=== PATIENT | male | born 1985 | race African-American/Black ===

== ENCOUNTER 2019-02-15 13:23 | Emergency (ER) | payer BC | END 2019-02-15 15:32 | disposition home or self-care (01) | LOC: ERS 13:23 | DX: M79.641 Pain in right hand (principal); F17.290 Nicotine dependence, other tobacco product, uncomplicated | CPT/HCPCS: 99283 ==

== ENCOUNTER 2019-02-19 19:27 | Emergency (ER) | payer BC | END 2019-02-19 20:04 | disposition left against medical advice (07) | LOC: ERS 19:27 | DX: Z53.21 Procedure and treatment not carried out due to patient leaving prior to being seen by health care provider (principal) ==